=== PATIENT | male | born 1950 | race Caucasian/White ===

== ENCOUNTER 2020-10-13 08:13 | Outpatient (RCR) | payer MEDICARE, SELFPAY ==
[2020-10-13] MEDS: COVID-19 VACC, MRNA(PFIZER)/PF 30 MCG/0.3 ML SYRINGE IM (17:51)
[2020-11-03] MEDS: COVID-19 VACC, MRNA(PFIZER)/PF 30 MCG/0.3 ML SYRINGE IM (17:02)
== END 2021-01-17 23:59 ==
LOC: IMMUN 08:13
PROVIDERS: PCP Internal Medicine; Referring Provider Family Medicine; Visit Provider Family Medicine
DX: Z23 Encounter for immunization (principal)
CPT/HCPCS: 0001A; 0002A; 91300

== ENCOUNTER 2022-01-22 15:03 | Inpatient (IN) | payer MEDICARE, SELFPAY ==
[2022-01-22 15:05] VITALS: BP 137/92; PULSE 103; RESP 18; TEMP 36.1; O2SAT 96; BMI 29.5
--- NOTE | 2022-01-22 15:27 | EX.ED.GUMALE ---
HPI History of Present Illness Chief Complaint: Complaint Informant: patient Pain Onset: Yesterday Context: Sudden Onset Timing: Intermittent Current Severity: Moderate Maximum Severity: Moderate Worsened by: n/a Relieved by: n/a Narrative Narrative: Patient presenting with hematuria most times when he urinates since yesterday a.m. He had been urinating frequently, every 10 minutes or so, he gets the urge/pressure, then goes and then he feels better and does not feel like his bladder is full anymore until the next time he needs to go. He is only urinating very little when that happens. He is on Eliquis because of atrial fibrillation it was found about 6 weeks ago as an outpatient, asymptomatic. His last dose was taken last night, around 16 or 18 hours ago. States he has a history of enlarged prostate and in 1 part of 12 of his biopsies, there were cancer cells seen and has been observed. Saw urologist at [facility]. States he has not drank as much water today, but otherwise no other symptoms. No nausea, vomiting, fevers, dysuria, back pain. [facility] Medical History Atrial fibrillation Prostate cancer Home Medications apixaban [Eliquis] 5 mg PO BID 01/22/22 [History Last Taken 01/22/22] carvedilol 25 mg PO BID 01/22/22 [History Last Taken 01/22/22] doxazosin 8 mg PO DAILY 01/22/22 [History Last Taken 01/22/22] dulaglutide [Trulicity] 7.5 mg SUBCUT MO 01/22/22 [History Last Taken 01/22/22] glipizide 5 mg PO DAILY 01/22/22 [History Last Taken 01/22/22] levothyroxine [Synthroid] 87.5 mcg PO LAGUERRE 01/22/22 [History Last Taken 01/21/22] levothyroxine [Synthroid] 175 mcg PO MOTUWETHFRSA 01/22/22 [History Last Taken 01/22/22] losartan 50 mg PO BID 01/22/22 [History Last Taken 01/22/22] metformin 1,000 mg PO BID 01/22/22 [History Last Taken 01/22/22] Allergy/AdvReac Type Severity Reaction Status Date / Time Bxszubd-PZN-IuO Reductase AdvReac Pain in Verified 01/22/22 15:05 Inhibitor joints BLOOD PRESSURE MED Allergy Other Uncoded 01/22/22 15:05 Social History Smoking Status: Former smoker ROS ROS ED Constitutional Constitutional ED: Denies chills or fever(s) Eyes Eyes: Denies change in vision or diplopia ENT ENT ED: Denies rhinorrhea or sore throat Cardiovascular Cardiovascular: Denies chest pain or palpitations Respiratory/Chest Respiratory/Chest: Denies cough or dyspnea Gastrointestinal Gastrointestinal: Denies abdominal pain, diarrhea, nausea or vomiting Genitourinary Genitourinary ED: Reports as per HPI, hematuria, urinary frequency and urinary urgency; Denies dysuria Musculoskeletal Musculoskeletal: Denies back pain or neck pain Integumentary Denies abscess or rash Neurologic Neurologic: Denies headache(s), paresthesias or weakness Psychiatric Psychiatric: Denies anxiety or suicidal thoughts EXAM Physical Exam Const Vital Signs: 01/22/22 15:05 01/22/22 19:22 Temperature 96.9 F L Temperature Source Temporal Pulse Rate 103 H 98 Respiratory Rate 18 18 Blood Pressure 137/92 H Blood Pressure Mean 107 Pulse Ox 96 Oxygen Delivery Method Room Air Positive well nourished and well developed General Appearance ED: well developed and NAD HEENT Reports moist mucous membranes normocephalic and atraumatic Eyes PERRL and EOMs intact bilaterally Neck full ROM and supple Resp normal respiratory effort and clear to auscultation bilaterally Cardio regular rate, regular rhythm and no murmurs GI non-tender and non-distended Auscultation: normoactive bowel sounds Palpation: soft Back/Spine no CVA tenderness General Back: other FROM Extremity normal to inspection General Extremety ED: Negative for edema, pulses abnormal or tenderness General Extremity: Negative for edema or pulses abnormal Neuro oriented x3, CN's II-XII intact bilaterally and no sensory deficits noted Sensorium / Orientation: awake and alert Motor Exam: strength 5/5 throughout Skin no rashes or lesions noted and no wounds MDM MDM MDM Narrative Medical decision making narrative: Triple-lumen catheter was ordered, however nurse placed a regular Palafox in this patient and after performing Urojet to help placement. About 500 cc of urine came out, consistent with urinary retention, since this was post void and the patient only had very little come out. After small amount of irrigation patient still has hematuria and then the catheter was switched out to a triple-lumen, the patient was irrigated a small amount again. He has persistent hematuria. I think he can stop his anticoagulant temporarily, since it is for stroke prophylaxis due to A. fib.. However since he continues to bleed and had urinary retention, admission to the hospital is warranted for now. Discussed with urology Dr. Joseph as well, who will see the patient tomorrow in consultation Lab Data Attestation: I reviewed the patient's lab results. Labs: Laboratory Results - last 24 hr 01/22/22 01/22/22 01/22/22 15:40 15:40 15:50 WBC 8.8 RBC 4.83 Hgb 14.2 Hct 40.7 MCV 84.3 MCH 29.4 MCHC 34.9 RDW Std Deviation 39.1 RDW Coeff of Nenita 12.8 Plt Count 214 MPV 10.4 Immature Gran % (Auto) 0.800 Neut % (Auto) 81.8 H Lymph % (Auto) 9.5 L [place] % (Auto) 5.9 Eos % (Auto) 1.4 Baso % (Auto) 0.6 Absolute Neuts (auto) 7.2 Absolute Lymphs (auto) 0.84 Nucleated RBC % 0 Sodium 139 Potassium 4.3 Chloride 107 Carbon Dioxide 25.0 Anion Gap 7 BUN 18 Creatinine 1.29 Estim Creat Clear Calc 57.56 Est GFR (MDRD) Af Amer 71 Est GFR (MDRD) Non-Af 59 L BUN/Creatinine Ratio 14.0 Glucose 134 H Calcium 9.3 Urine Color Red Urine Clarity Cloudy Urine pH 6.5 Ur Specific [place] 1.015 Urine Protein 500 H Urine Glucose (UA) Normal Urine Ketones Negative Urine Occult Blood 250 H Urine Nitrite Negative Urine Bilirubin Negative Urine Urobilinogen Normal Ur Leukocyte Esterase Negative Urine RBC > 100 SEEN Urine WBC 0-5 SEEN Ur Squamous Epith Cells 0-5 SEEN Urine Bacteria 1+ Urine Mucus 0 SEEN Discharge Plan Dx/Rx/DC Orders Clinical Impression: Acute urinary retention, Hematuria, Atrial fibrillation Disposition Disposition: Acute Care Hospital [facility]
[2022-01-22 15:53] LABS: Absolute Lymphocyte Count 0.84 X10^3/uL (0.83-4.51); Absolute Neutrophil Count 7.2 X10^3/uL (2.0-7.7); Basophil# 0.05 X10^3/uL; Basophil% 0.6 % (0-1); Eosinophil# 0.12 X10^3/uL; Eosinophils% 1.4 % (0-5); Hematocrit 40.7 % (40-54); Hemoglobin 14.2 g/dL (13.0-16.5); Lymphocyte # 0.84 X10^3/ul (0.83-4.51); Lymphocyte % 9.5 % (19-41); Mean Corp Hgb Conc 34.9 g/dL (32-36); Mean Corpuscular Hgb 29.4 pg (27.0-32.0); Mean Corpuscular Volume 84.3 fL (80-94); Mean Platelet Vol. 10.4 fl (6.2-12.0); Monocyte# 0.52 X10^3/uL; Monocyte% 5.9 % (0-10); NRBC Flagged by Analyzer 0 % (0-5); Neutrophil # 7.24 X10^3/uL (2.7-7.7); Neutrophil % 81.8 % (47-70); Platelet Count 214 K/mm3 (150-450); RBC Distribution Width CV 12.8 % (11.6-14.6); RBC Distribution Width SD 39.1 fl (35.1-43.9); Red Blood Count 4.83 M/mm3 (4.6-6.2); White Blood Count 8.8 K/mm3 (4.4-11.0)
[2022-01-22 16:01] LABS: Mucous, Urine 0 SEEN /hpf (<or=2+)
[2022-01-22 16:05] LABS: Anion Gap 7 (5-15); BUN 18 mg/dL (7-18); Calcium,Total 9.3 mg/dL (8.5-10.1); Chloride 107 mmol/L (98-107); Creatinine, Serum 1.29 mg/dL (0.70-1.30); EST Glomerular Filtration Rate 59 mL/min (>60); Est Glom Filt Rate - Afr Amer 71 mL/min (>60); Estimated Creatinine Clearance 57.56 ml/min; Glucose 134 mg/dL (74-106); Potassium 4.3 mmol/L (3.5-5.1); Sodium Level 139 mmol/L (136-145)
[2022-01-22 16:22] LABS: Color, Urine Red (Yellow); Glucose, Dipstick Normal (Normal); Ketone-Dipstick Negative (Negative); Leukocyte Esterase-Dipstick Negative /ul (Negative); Nitrite-Dipstick Negative (Negative); Occult Blood-Urine 250 /ul (Negative); Protein-Dipstick 500 mg/dl (Negative); Specific Gravity, Urine 1.015 (1.002-1.030); Urine Bilirubin Dipstick Negative (Negative); Urine Clarity Cloudy (Clear); Urine Urobilinogen Normal (Normal); Urine pH 6.5 (5.0 - 8.0)
[2022-01-22] MEDS: Lidocaine Jelly 2% 20 ML Syringe (URO-JET) 1 APPLIC TOPICAL (16:43)
[2022-01-22 17:03] LABS: Bacteria 1+ /hpf (None Seen); Red Blood Cells-Urine > 100 SEEN /hpf (0-5); Squamous Epithelial Cells - UA 0-5 SEEN /hpf (0-5); White Blood Cells 0-5 SEEN /hpf (0-5)
[2022-01-22 19:22] VITALS: PULSE 98; RESP 18
--- NOTE | 2022-01-22 19:52 | HP.PCM.HOS_ITS ---
[facility] - General General Date of Admission: 01/22/22 HPI Narrative GRETCHEN RODAS, is a 71 M with a significant history of atrial fibrillation on Eliquis diabetes mellitus; hypothyroidism on levothyroxine; BPH with a prostate cancer and on doxazosin who presented to emergency department with a 2-day history of progressively worsening gross hematuria. Associated with his symptoms is urinary dribbling and urinary urgency. He denies any other symptoms At the emergency department patient was found to have gross hematuria. Palafox catheterization was remarkable for 500 cc of urine initially. Three-way catheter for urinary irrigation was started. Two to three years ago patient had prostate biopsy with a urologist at [facility] [place]. Reportedly reports the biopsy showed 1 out of 12 samples of cancer. Due to COVID pandemic patient decided that the prostate cancer be watched. [facility] Medical History Atrial fibrillation Prostate cancer Home Medications apixaban [Eliquis] 5 mg PO BID 01/22/22 [History Last Taken 01/22/22] carvedilol 25 mg PO BID 01/22/22 [History Last Taken 01/22/22] doxazosin 8 mg PO DAILY 01/22/22 [History Last Taken 01/22/22] dulaglutide [Trulicity] 7.5 mg SUBCUT MO 01/22/22 [History Last Taken 01/22/22] glipizide 5 mg PO DAILY 01/22/22 [History Last Taken 01/22/22] levothyroxine [Synthroid] 87.5 mcg PO LAGUERRE 01/22/22 [History Last Taken 01/21/22] levothyroxine [Synthroid] 175 mcg PO MOTUWETHFRSA 01/22/22 [History Last Taken 01/22/22] losartan 50 mg PO BID 01/22/22 [History Last Taken 01/22/22] metformin 1,000 mg PO BID 01/22/22 [History Last Taken 01/22/22] Allergy/AdvReac Type Severity Reaction Status Date / Time [id number]-LWW-GjZ Reductase AdvReac Pain in Verified 01/22/22 15:05 Inhibitor joints BLOOD PRESSURE MED Allergy Other Uncoded 01/22/22 15:05 Family History Other Arthritis Hypertension Surgical History Hx of cholecystectomy Social History Smoking Status: Former smoker ROS ROS Narrative Constitutional: Denies fever, chills, fatigue, anorexia and change in weight Eyes: Denies blurry vision, change in eye color, change in vision, discharge from eye(s), double vision, erythema, eye pain, loss of vision or other HEENT: Denies abnormal hearing, dysphagia, ear pain, epistaxis, headache(s), hearing loss, nasal congestion, nasal discharge, post nasal drip, sinus pressure, sore throat or other Cardiovascular: Denies chest pain or palpitations. Denies dyspnea on exertion, orthopnea and paroxysmal nocturnal dyspnea Respiratory/Chest: Denies cough, excessive phlegm production, shortness of breath with exertion and wheezing Gastrointestinal: Denies abdominal pain, coffee ground emesis, constipation, diarrhea, dyspepsia, hematemesis, hematochezia, loose stools, melena, nausea, vomiting or other Genitourinary: Gross hematuria. Urinary urgency. Musculoskeletal: Denies arthralgias, back pain, joint pain, joint stiffness, joint swelling, myalgias, neck pain or other Neurologic: Denies abnormal gait, abnormal speech, confusion, disequilibrium, dizziness, focal weakness, numbness, paresthesias, seizure-like activity, seizures, syncope, tingling, tremor(s) or other Psychiatric: Denies anxiety, depression, homicidal ideation, suicidal ideation or other Endocrinology: Denies change in body appearance, cold intolerance, excessive sweating, heat intolerance, polydipsia, polyuria or other Hematologic/Lymphatic: Denies anemia, easy bleeding, easy bruising, lymphadenopathy or other Integumentary: Denies rashes Allergic/Immunologic: Denies rhinitis, hives, eczema, or other Vital Signs Vital Signs Vital Signs: 01/22/22 15:05 01/22/22 19:22 Temperature 96.9 F L Temperature Source Temporal Pulse Rate 103 H 98 Respiratory Rate 18 18 Blood Pressure 137/92 H Blood Pressure Mean 107 Pulse Ox 96 Oxygen Delivery Method Room Air Weight Weight: 95.98 kg Body Mass Index (BMI) 29.5 Physical Exam Narrative Physical exam: General: Well-nourished, well-developed. Head: Normocephalic, atraumatic, no tenderness Eyes: Vision is grossly intact. EOMI ENT, no trauma, moist mucous membranes, no rhinorrhea Neck: Nontender, full range of motion. CVS: Regular rate and rhythm. S1-S2 present. No murmur, gallop or rub. Respiratory : clear to auscultation bilaterally, chest wall nontender, no wheezing Abdomen: Soft, nontender, nondistended, normal bowel sounds, no masses : Palafox catheter in place. Irrigation with bloody urine in Palafox bag. Back: Nontender, no CVA tenderness, no midline spinal tenderness, deformities, step-offs Extremities: Nontender full range of motion, no trauma Skin: Normal color, no trauma, abrasions Neuro: Alert, oriented, cranial nerves II through XII grossly intact. Psychiatry: Normal mood. Normal affect. Not depressed. Not anxious. Results Lab / Micro Data Result Diagrams: 01/22/22 15:40 01/22/22 15:40 Labs: Laboratory Results - last 24 hr 01/22/22 15:40: WBC 8.8, RBC 4.83, Hgb 14.2, Hct 40.7, MCV 84.3, MCH 29.4, MCHC 34.9, RDW Std Deviation 39.1, RDW Coeff of Nenita 12.8, Plt Count 214, MPV 10.4, Immature Gran % (Auto) 0.800, Neut % (Auto) 81.8 H, Lymph % (Auto) 9.5 L, [place] % (Auto) 5.9, Eos % (Auto) 1.4, Baso % (Auto) 0.6, Absolute Neuts (auto) 7.2, Absolute Lymphs (auto) 0.84, Nucleated RBC % 0 01/22/22 15:40: Sodium 139, Potassium 4.3, Chloride 107, Carbon Dioxide 25.0, Anion Gap 7, BUN 18, Creatinine 1.29, Estim Creat Clear Calc 57.56, Est GFR (MDRD) Af Amer 71, Est GFR (MDRD) Non-Af 59 L, BUN/Creatinine Ratio 14.0, Glucose 134 H, Calcium 9.3 01/22/22 15:50: Urine Color Red, Urine Clarity Cloudy, Urine pH 6.5, Ur Specific [place] 1.015, Urine Protein 500 H, Urine Glucose (UA) Normal, Urine Ketones Negative, Urine Occult Blood 250 H, Urine Nitrite Negative, Urine Bilirubin Negative, Urine Urobilinogen Normal, Ur Leukocyte Esterase Negative, Urine RBC > 100 SEEN, Urine WBC 0-5 SEEN, Ur Squamous Epith Cells 0-5 SEEN, Urine Bacteria 1+, Urine Mucus 0 SEEN Assessment & Plan Assessment/Plan (1) Acute urinary retention: (2) Hematuria: (3) Atrial fibrillation: PLAN: Urinary retention and gross hematuria Three-way urinary catheter was inserted at emergency department and bladder irrigation initiated; continued. Gentle normal saline hydration. Hemoglobin on presentation was 14.2. Will trend CBC. Emergency department doctor discussed the case with urology. Inpatient urology consult. We will keep patient n.p.o. after midnight. Hypertension Blood pressure is not within goal Carvedilol continued. Trend blood pressure and adjust blood pressure medications. Diabetes mellitus Patient with mild hyperglycemia on presentation Hold home oral hypoglycemic regimen. Also on home Trulicity. Monitor Accu-Cheks. Correction scale insulin ordered. Paroxysmal A. fib Stable Placed on admitting telemetry. Hold Eliquis for gross hematuria. DVT Prophylaxis: SCD ordered. Charges/Coding Visit Charges Inpatient E&M: 45403 Init Hosp L3
[2022-01-22 20:18] VITALS: BP 127/96; PULSE 75; RESP 18; TEMP 37.2; O2SAT 96
[2022-01-22 20:40] LABS: International Normalized Ratio 1.1; Prothrombin Time (Protime)PT. 14.3 SECONDS (11.7-14.9)
[2022-01-22 21:06] VITALS: BMI 28.2
[2022-01-22 21:07] VITALS: BP 186/92; PULSE 98; RESP 18; TEMP 37.2; O2SAT 98
[2022-01-22] MEDS: 0.9% Saline Lock 10 ML Syringe IV (21:39)
[2022-01-22] MEDS: 0.9% Normal Saline 1,000 ML 75 ML IV (21:39)
[2022-01-22 21:52] VITALS: PULSE 94
[2022-01-22 22:31] VITALS: BP 122/95; PULSE 96
[2022-01-22] MEDS: Oxymetazoline 0.05% 1 SPRAY SPRAY.BTL NASAL (22:39)
[2022-01-22] MEDS: Doxazosin 4 MG Tablet 8 MG PO (22:40)
[2022-01-22] MEDS: Losartan Potassium 50 MG Tablet PO (22:40)
[2022-01-22 22:50] LABS: Bedside Glucose 109 mg/dL (74-106)
[2022-01-23] VITALS (11 sets, daily range): BP systolic 119–157; BP diastolic 73–92; PULSE 77–98; RESP 16–18; TEMP 36.6–37; O2SAT 94–97
[2022-01-23 05:58] LABS: Absolute Lymphocyte Count 1.51 X10^3/uL (0.83-4.51); Absolute Neutrophil Count 4.9 X10^3/uL (2.0-7.7); Basophil# 0.04 X10^3/uL; Basophil% 0.5 % (0-1); Eosinophil# 0.28 X10^3/uL; Eosinophils% 3.7 % (0-5); Hematocrit 37.5 % (40-54); Hemoglobin 12.8 g/dL (13.0-16.5); Lymphocyte # 1.51 X10^3/ul (0.83-4.51); Lymphocyte % 19.8 % (19-41); Mean Corp Hgb Conc 34.1 g/dL (32-36); Mean Corpuscular Hgb 29.4 pg (27.0-32.0); Mean Platelet Vol. 10.4 fl (6.2-12.0); Monocyte# 0.84 X10^3/uL; NRBC Flagged by Analyzer 0 % (0-5); Neutrophil # 4.91 X10^3/uL (2.7-7.7); Neutrophil % 64.3 % (47-70); Platelet Count 187 K/mm3 (150-450); RBC Distribution Width SD 40.4 fl (35.1-43.9); Red Blood Count 4.36 M/mm3 (4.6-6.2); White Blood Count 7.6 K/mm3 (4.4-11.0)
[2022-01-23 06:27] LABS: Anion Gap 5 (5-15); BUN 18 mg/dL (7-18); BUN/Creat Ratio 16.2 RATIO (10-20); Calcium,Total 8.8 mg/dL (8.5-10.1); Chloride 108 mmol/L (98-107); Creatinine, Serum 1.11 mg/dL (0.70-1.30); EST Glomerular Filtration Rate 70 mL/min (>60); Est Glom Filt Rate - Afr Amer 84 mL/min (>60); Glucose 76 mg/dL (74-106); Potassium 3.7 mmol/L (3.5-5.1); Sodium Level 140 mmol/L (136-145)
--- NOTE | 2022-01-23 07:08 | PN.HOSP_ITS ---
Subjective Subjective Patient is a 71-year-old gentleman with past medical history segment of paroxysmal A. fib on systemic anticoagulation with apixaban admitted with hematuria Objective Data Objective Data Vital Signs: Vital Signs Temp Pulse Resp BP Pulse Ox 98.6 F 78 18 157/92 H 94 01/23/22 03:55 01/23/22 05:43 01/23/22 03:55 01/23/22 03:55 01/23/22 03:55 Oxygen Delivery Method Room Air Weight: 91.716 kg Body Mass Index (BMI) 28.2 Intake & Output: Intake and Output for Last 24 Hours 01/21/22 01/22/22 01/23/22 23:59 23:59 23:59 Intake Total 400 / 400 Output Total 3250 / 3250 600 / 600 Balance -2850 / -2850 -600 / -600 Lab / Micro Data Result Diagrams: 01/23/22 04:39 01/23/22 04:39 Labs: Laboratory Results - last 24 hr 01/22/22 15:40: WBC 8.8, RBC 4.83, Hgb 14.2, Hct 40.7, MCV 84.3, MCH 29.4, MCHC 34.9, RDW Std Deviation 39.1, RDW Coeff of Nenita 12.8, Plt Count 214, MPV 10.4, Immature Gran % (Auto) 0.800, Neut % (Auto) 81.8 H, Lymph % (Auto) 9.5 L, [place] % (Auto) 5.9, Eos % (Auto) 1.4, Baso % (Auto) 0.6, Absolute Neuts (auto) 7.2, Absolute Lymphs (auto) 0.84, Nucleated RBC % 0 01/22/22 15:40: Sodium 139, Potassium 4.3, Chloride 107, Carbon Dioxide 25.0, Anion Gap 7, BUN 18, Creatinine 1.29, Estim Creat Clear Calc 57.56, Est GFR (MDRD) Af Amer 71, Est GFR (MDRD) Non-Af 59 L, BUN/Creatinine Ratio 14.0, Glucose 134 H, Calcium 9.3 01/22/22 15:50: Urine Color Red, Urine Clarity Cloudy, Urine pH 6.5, Ur Specific [place] 1.015, Urine Protein 500 H, Urine Glucose (UA) Normal, Urine Ketones Negative, Urine Occult Blood 250 H, Urine Nitrite Negative, Urine Bilirubin Negative, Urine Urobilinogen Normal, Ur Leukocyte Esterase Negative, Urine RBC > 100 SEEN, Urine WBC 0-5 SEEN, Ur Squamous Epith Cells 0-5 SEEN, Urine Bacteria 1+, Urine Mucus 0 SEEN 01/22/22 20:21: PT 14.3, INR 1.1 01/22/22 22:34: POC Glucose 109 H 01/23/22 04:39: WBC 7.6, RBC 4.36 L, Hgb 12.8 L, Hct 37.5 L, MCV 86.0, MCH 29.4, MCHC 34.1, RDW Std Deviation 40.4, RDW Coeff of Nenita 13.0, Plt Count 187, MPV 10 .4, Immature Gran % (Auto) 0.700, Neut % (Auto) 64.3, Lymph % (Auto) 19.8, [place] % (Auto) 11.0 H, Eos % (Auto) 3.7, Baso % (Auto) 0.5, Absolute Neuts (auto) 4.9, Absolute Lymphs (auto) 1.51, Nucleated RBC % 0 01/23/22 04:39: Sodium 140, Potassium 3.7, Chloride 108 H, Carbon Dioxide 27.0, Anion Gap 5, BUN 18, Creatinine 1.11, Estim Creat Clear Calc 66.90, Est GFR (MDRD) Af Amer 84, Est GFR (MDRD) Non-Af 70, BUN/Creatinine Ratio 16.2, Glucose 76, Calcium 8.8 Physical Exam Narrative GENERAL: cooperative HEENT: Atraumatic; EYES; Anicteric, Normal Conjunctiva NECK; supple, normal thyroid, RESPIRATORY: Diminished to auscultation CARDIOVASCULAR: Regular S1 S2, GI: soft, normoactive bowel sounds, : No Renal angle tenderness; EXTREMITIES: No edema, no clubbing, MUSCULOSKELETAL: no muscle wasting NEURO: Awake; no lateralizing signs. SKIN: No Rash PSYCH; Flat affect. Assessment & Plan Assessment/Plan (1) Acute urinary retention: (2) Hematuria: (3) Atrial fibrillation: PLAN: Patient is a 71-year-old gentleman with past medical history segment of paroxysmal A. fib on systemic anticoagulation with apixaban admitted with hematuria 1. Acute urinary retention with hematuria ? Patient admitted to regular nursing floor started on a three-way urinary catheter with continuous bladder irrigation consult placed to urology. Patient is on apixaban this was held 2. Hypertension - Blood pressure controlled, home medications continued with dose adjustment as needed 3. Diabetes mellitus type II -patient's oral hypoglycemics held. Placed on long acting insulin, Accu-Cheks a.c. and at bedtime and covered with sliding scale insulin 4. Paroxysmal A. fib ? Rate controlled on apixaban for systemic anticoagulation this was held in view of his gross hematuria 5. DVT prophylaxis ? Patient was on apixaban prior to admission Charges/Coding Visit Charges Inpatient E&M: 63974 Subs Hosp L2
--- NOTE | 2022-01-23 07:38 | PCM.CONS.U ---
Assessment & Plan Assessment/Plan (1) Acute urinary retention: PLAN: mendez for now (2) Hematuria: PLAN: ct scan stone protocol HPI Consult Data Date of Consult: 01/23/22 HPI Narrative HPI Narrative: GRETCHEN RODAS, is a 71 M who Presents to the hospital with gross hematuria, he has a history of prostate cancer low-grade that was diagnosed and he has been on active surveillance. Presented with gross hematuria three-way catheter was initiated the urine is now clear we can slow down the irrigation and stop it if possible. I would order a CT scan stone protocol to evaluate the source of the bleeding and pending that findings he may have to have surgical intervention. [facility] Medical History (Updated 01/22/22 @ 21:16 by Héctor Barton) Atrial fibrillation Ex-smoker History of stress test Hypothyroid Prostate cancer Home Medications apixaban [Eliquis] 5 mg PO BID 01/22/22 [History Last Taken 01/22/22] carvedilol 25 mg PO BID 01/22/22 [History Last Taken 01/22/22] doxazosin 8 mg PO DAILY 01/22/22 [History Last Taken 01/22/22] dulaglutide [Trulicity] 7.5 mg SUBCUT MO 01/22/22 [History Last Taken 01/22/22] glipizide 5 mg PO DAILY 01/22/22 [History Last Taken 01/22/22] levothyroxine [Synthroid] 87.5 mcg PO LAGUERRE 01/22/22 [History Last Taken 01/21/22] levothyroxine [Synthroid] 175 mcg PO MOTUWETHFRSA 01/22/22 [History Last Taken 01/22/22] losartan 50 mg PO BID 01/22/22 [History Last Taken 01/22/22] metformin 1,000 mg PO BID 01/22/22 [History Last Taken 01/22/22] Allergy/AdvReac Type Severity Reaction Status Date / Time [id number] Reductase AdvReac Pain in Verified 01/22/22 15:05 Inhibitor joints BLOOD PRESSURE MED Allergy Other Uncoded 01/22/22 15:05 Family History Other Arthritis Hypertension Surgical History Hx of cholecystectomy Social History Smoking Status: Former smoker ROS Constitutional Constitutional: Denies chills, fever(s) or malaise Eyes Eyes: Denies blurry vision or change in vision ENT HEENT: Reports none Cardiovascular Cardiovascular: Denies chest pain or palpitations Respiratory/Chest Respiratory/Chest: Denies cough or shortness of breath with exertion Gastrointestinal Gastrointestinal: Denies abdominal pain, constipation or diarrhea Musculoskeletal Musculoskeletal: Denies back pain, joint stiffness or joint swelling Integumentary Integumentary: Denies dry skin, jaundice, lesions or rash Neurologic Neurologic: Denies confusion, syncope or weakness Psychiatric Psychiatric: Reports none; Denies anxiety or depression Endocrine Endocrinology: Denies excessive sweating, fatigue or flushing Hematologic/Lymphatic Hematologic/Lymphatic: Denies anemia, easy bleeding or easy bruising Physical Exam Const alert and oriented x3 General Appearance: cooperative HEENT normocephalic, head/scalp atraumatic, EAC's normal and TM's normal bilaterally Eyes PERRL and EOMs intact bilaterally Pupil: sluggish Neck no lymphadenopathy, supple and no JVD General: trachea midline Lymph Lymphatic: no lymphadenopathy noted, lymphedema and lymphadenopathy Resp normal respiratory effort, normal air movement and clear to auscultation bilaterally Cardio regular rate, regular rhythm and peripheral pulses 2+ throughout GI soft to palpation, non-tender and non-distended Extremity normal capillary refill and no clubbing, cyanosis or edema General Extremity: no tenderness to palpation of joints or extremities Skin no rashes or lesions noted General Skin Exam: turgor normal Lesions: no lesions Rashes: no rashes Neuro CN's II-XII intact bilaterally Speech: speech normal Motor Exam: strength 5/5 throughout; Negative for general weakness Psych thought process normal, cooperative and affect normal Appearance: appropriate Lab / Micro Data Result Diagrams: 01/23/22 04:39 01/23/22 04:39 Labs: Laboratory Results - last 24 hr 01/22/22 15:40: WBC 8.8, RBC 4.83, Hgb 14.2, Hct 40.7, MCV 84.3, MCH 29.4, MCHC 34.9, RDW Std Deviation 39.1, RDW Coeff of Nenita 12.8, Plt Count 214, MPV 10.4, Immature Gran % (Auto) 0.800, Neut % (Auto) 81.8 H, Lymph % (Auto) 9.5 L, [place] % (Auto) 5.9, Eos % (Auto) 1.4, Baso % (Auto) 0.6, Absolute Neuts (auto) 7.2, Absolute Lymphs (auto) 0.84, Nucleated RBC % 0 01/22/22 15:40: Sodium 139, Potassium 4.3, Chloride 107, Carbon Dioxide 25.0, Anion Gap 7, BUN 18, Creatinine 1.29, Estim Creat Clear Calc 57.56, Est GFR (MDRD) Af Amer 71, Est GFR (MDRD) Non-Af 59 L, BUN/Creatinine Ratio 14.0, Glucose 134 H, Calcium 9.3 01/22/22 15:50: Urine Color Red, Urine Clarity Cloudy, Urine pH 6.5, Ur Specific [place] 1.015, Urine Protein 500 H, Urine Glucose (UA) Normal, Urine Ketones Negative, Urine Occult Blood 250 H, Urine Nitrite Negative, Urine Bilirubin Negative, Urine Urobilinogen Normal, Ur Leukocyte Esterase Negative, Urine RBC > 100 SEEN, Urine WBC 0-5 SEEN, Ur Squamous Epith Cells 0-5 SEEN, Urine Bacteria 1+, Urine Mucus 0 SEEN 01/22/22 20:21: PT 14.3, INR 1.1 01/22/22 22:34: POC Glucose 109 H 01/23/22 04:39: WBC 7.6, RBC 4.36 L, Hgb 12.8 L, Hct 37.5 L, MCV 86.0, MCH 29.4, MCHC 34.1, RDW Std Deviation 40.4, RDW Coeff of Nenita 13.0, Plt Count 187, MPV 10.4, Immature Gran % (Auto) 0.700, Neut % (Auto) 64.3, Lymph % (Auto) 19.8, [place] % (Auto) 11.0 H, Eos % (Auto) 3.7, Baso % (Auto) 0.5, Absolute Neuts (auto) 4.9, Absolute Lymphs (auto) 1.51, Nucleated RBC % 0 01/23/22 04:39: Sodium 140, Potassium 3.7, Chloride 108 H, Carbon Dioxide 27.0, Anion Gap 5, BUN 18, Creatinine 1.11, Estim Creat Clear Calc 66.90, Est GFR (MDRD) Af Amer 84, Est GFR (MDRD) Non-Af 70, BUN/Creatinine Ratio 16.2, Glucose 76, Calcium 8.8
--- NOTE | 2022-01-23 07:41 | CT_ITS ---
STUDY: CT ABDOMEN AND PELVIS WITH AND WITHOUT CONTRAST REASON FOR EXAM: Male, 71 years old. Gross hematuria. History of prostate cancer and urinary retention. RADIATION DOSAGE (If Supplied By Facility): CTDIvol = ( 22.99 ) mGy, DLP = ( 4009.23 ) mGycm TECHNIQUE: Transaxial images were obtained from the dome of the diaphragm to the symphysis pubis without oral contrast. 100ML ISOVUE 300 was administered. Sagittal and coronal images were reconstructed. Individualized dose optimization techniques were used for this CT. COMPARISON: None. FINDINGS: The visualized lung bases are unremarkable. Coronary artery calcification. There is decreased attenuation of the liver consistent with steatosis. The patient is status post cholecystectomy. Normal spleen. Normal pancreas. Normal bilateral adrenal glands. There is a 1.9 cm cyst in the mid and lateral aspect of the right kidney. 1.3 cm cyst in the posterior upper pole of the right kidney. There is a 6.2 mm nonobstructive calculus in the midpole calyx of the left kidney. There is a small hiatal hernia. There is a 1.6 cm diverticulum in the second portion of the duodenum. Normal small intestine. Normal colon. The appendix is visualized and appears normal. There is diffuse atherosclerotic calcification of the abdominal aorta, without a demonstrated aneurysm. Normal inferior vena cava. Normal retroperitoneum. A EHRCULES catheter is seen within the urinary bladder. The urinary bladder is empty. There is a irregularity of the visualized bladder wall. There is enlargement of the prostate gland. The prostate measures 5.1 cm x 5.9 cm. This causes indentation of the bladder base. Normal abdominal wall. There are degenerative changes of the visualized lumbar spine. Mild dextroscoliosis. CT/CT Abd/Pelvis W/WO Contrast IMPRESSION: Diffuse enlargement of the prostate with indentation of the bladder base. Irregular thickening of the urinary bladder wall. Findings the position of the liver. Small bilateral renal cysts. 6.2 mm nonobstructive calculus in the midpole calyx of the left kidney. Electronically Signed: Moe Padron MD at 9:20 EDT ,
[2022-01-23] MEDS: Carvedilol 25 MG Tablet PO ×2 (07:46→16:25)
[2022-01-23] MEDS: Acetaminophen 325 MG Tablet 650 MG PO (07:50)
--- NOTE | 2022-01-23 10:10 | CASEMGMT ---
RN KALA Face to Face with patient for initial transition planning/care coordination assessment. RN CM introduced self and role at [facility]. Patient lying in bed, alert and oriented. Patient willing to participate in assessment and is able to answer all questions appropriately. Care providers, pharmacy, and demographics verified. Patient wishes to discharge home, denies need for home health at this time. Patient states he has no further needs or concerns at this time. CM to follow for discharge planning needs that may arise. 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 Patient states he is independent at home. Transportation: self, hospital van DME/HHC: Patient denies previous HHC or SNF. No DME in the home Disposition Plan: Patient to discharge home with family support and follow-up plans in place. Hedy JEFFERSON, RN, CM
[2022-01-23] MEDS: 0.9% Normal Saline 1,000 ML 75 ML IV ×2 (10:23→21:43)
[2022-01-23] MEDS: Finasteride 5 MG Tablet PO (10:24)
[2022-01-23] MEDS: Oxymetazoline 0.05% 1 SPRAY SPRAY.BTL NASAL ×2 (10:24→21:36)
[2022-01-23] MEDS: Tamsulosin HCl 0.4 MG Capsule PO ×2 (10:24→21:36)
[2022-01-23] MEDS: Losartan Potassium 50 MG Tablet PO ×2 (10:24→21:37)
[2022-01-23 11:45] LABS: Bedside Glucose 184 mg/dL (74-106)
[2022-01-23 16:45] LABS: Bedside Glucose 141 mg/dL (74-106)
[2022-01-23] MEDS: Doxazosin 4 MG Tablet 8 MG PO (21:37)
[2022-01-23 22:10] LABS: Bedside Glucose 135 mg/dL (74-106)
[2022-01-24] VITALS (7 sets, daily range): BP systolic 131–151; BP diastolic 74–82; PULSE 67–78; RESP 16–18; TEMP 36.6–36.8; O2SAT 95–99
[2022-01-24] MEDS: Levothyroxine 175 MCG Tablet PO (05:45)
--- NOTE | 2022-01-24 06:00 | EKG12_ITS ---
Test Reason : AM EKG Blood Pressure : / mmHG Vent. Rate : 075 BPM Atrial Rate : 075 BPM P-R Int : 176 ms QRS Dur : 084 ms QT Int : 374 ms P-R-T Axes : 042 -20 029 degrees QTc Int : 417 ms Normal sinus rhythm Normal ECG Confirmed by SYLVIA FRAGOSO, GRETCHEN ([id number]), editor newspaper CARROL EDWARDS ([id number]) on 01/25/2022 10:16:48 AM Referred By: OLINDA Confirmed By:GRETCHEN WARD MD
[2022-01-24 06:24] LABS: Thyroid Stim Hormone (TSH) 1.17 uIU/mL (0.358-3.74)
[2022-01-24 06:35] LABS: Bedside Glucose 122 mg/dL (74-106)
--- NOTE | 2022-01-24 07:13 | PN.HOSP_ITS ---
Subjective Subjective Patient seen hematuria cleared. Results of patient's CT ordered by urology reviewed. Objective Data Objective Data Vital Signs: Vital Signs Temp Pulse Resp BP Pulse Ox 97.9 F 73 16 131/74 H 96 01/24/22 02:04 01/24/22 04:03 01/24/22 02:04 01/24/22 02:04 01/24/22 02:04 Oxygen Delivery Method Room Air Weight: 91.716 kg Body Mass Index (BMI) 28.2 Intake & Output: Intake and Output for Last 24 Hours 01/22/22 01/23/22 01/24/22 23:59 23:59 23:59 Intake Total 400 / 400 2405 / 3205 800 / 800 Output Total 3250 / 3250 6850 / 6850 Balance -2850 / -2850 -4445 / -3645 800 / 800 Lab / Micro Data Result Diagrams: 01/23/22 04:39 01/23/22 04:39 Labs: Laboratory Results - last 24 hr 01/23/22 11:31: POC Glucose 184 H 01/23/22 16:24: POC Glucose 141 H 01/23/22 21:35: POC Glucose 135 H 01/24/22 03:44: TSH 1.17 01/24/22 05:38: POC Glucose 122 H Radiography Diagnostic Testing: Radiology Impression Abdomen/Pelvis CT 01/23/22 07:41 IMPRESSION: Diffuse enlargement of the prostate with indentation of the bladder base. Irregular thickening of the urinary bladder wall. Findings the position of the liver. Small bilateral renal cysts. 6.2 mm nonobstructive calculus in the midpole calyx of the left kidney. Electronically Signed: Moe Padron MD at 9:20 EDT , Physical Exam Narrative GENERAL: cooperative HEENT: Atraumatic; EYES; Anicteric, Normal Conjunctiva NECK; supple, normal thyroid, RESPIRATORY: Diminished to auscultation CARDIOVASCULAR: Regular S1 S2, GI: soft, normoactive bowel sounds, : No Renal angle tenderness; EXTREMITIES: No edema, no clubbing, MUSCULOSKELETAL: no muscle wasting NEURO: Awake; no lateralizing signs. SKIN: No Rash PSYCH; Flat affect. Assessment & Plan Assessment/Plan (1) Acute urinary retention: (2) Hematuria: (3) Atrial fibrillation: PLAN: Plan Patient is a 71-year-old gentleman with past medical history segment of paro xysmal A. fib on systemic anticoagulation with apixaban admitted with hematuria 1. Acute urinary retention with hematuria ? Patient admitted to regular nursing floor started on a three-way urinary c atheter with continuous bladder irrigation consult placed to urology. Patient is on apixaban this was held ? 01/24/[address] of the abdomen obtained demonstrated Diffuse enlargement of the prostate with indentation of the bladder base. Irregular thickening of the urinary bladder wall. Findings the position of the liver. Small bilateral renal cysts. 6.2 mm nonobstructive calculus in the midpole calyx of the left kidney -Further recommendation as per urology 2. Hypertension - Blood pressure controlled, home medications continued with dose adjustment as needed 3. Diabetes mellitus type II -patient's oral hypoglycemics held. Placed on long acting insulin, Accu-Cheks a.c. and at bedtime and covered with sliding scale insulin 4. Paroxysmal A. fib ? Rate controlled on apixaban for systemic anticoagulation this was held in view of his gross hematuria 5. DVT prophylaxis ? Patient was on apixaban prior to admission Charges/Coding Visit Charges Inpatient E&M: 27730 Subs Hosp L2
[2022-01-24 07:57] LABS: Hemoglobin A1c 5.8 % (3.8-5.6)
[2022-01-24] MEDS: Carvedilol 25 MG Tablet PO (08:35)
[2022-01-24] MEDS: Losartan Potassium 50 MG Tablet PO (08:35)
[2022-01-24] MEDS: Tamsulosin HCl 0.4 MG Capsule PO (08:35)
[2022-01-24] MEDS: Finasteride 5 MG Tablet PO (08:35)
[2022-01-24] MEDS: 0.9% Normal Saline 1,000 ML 75 ML IV (10:53)
[2022-01-24 11:46] LABS: Bedside Glucose 129 mg/dL (74-106)
[2022-01-24] MEDS: Oxymetazoline 0.05% 1 SPRAY SPRAY.BTL NASAL (12:41)
--- NOTE | 2022-01-24 16:48 | DS.PCM_ITS ---
Providers Date of Admission: 01/22/22 Primary Care Physician: Dr. Duane Kee MD Consultations 01/22/22 21:05 Consult: Urology Routine Consulting Provider: Clement Joseph Reason for Consult: Gross hematuria EMERGENT Consult: No MD Notified: Yes Date Notified: 01/22/22 Time Notified: 19:51 Method of Notification: ED Physician Initiated Reason For Visit: GROSS HEMATURIA, URINARY RETENTION Diagnosis Discharge Diagnosis (1) Acute urinary retention: Status: Acute Code(s): R33.8 - Other retention of urine (2) Hematuria: Status: Acute Code(s): R31.9 - Hematuria, unspecified (3) Atrial fibrillation: Status: Acute Code(s): I48.91 - Unspecified atrial fibrillation Medications at Discharge Home Medications carvedilol 25 mg tablet 25 mg PO BID heart 01/22/22 doxazosin 8 mg tablet 8 mg PO DAILY heart 01/22/22 dulaglutide 0.75 mg/0.5 mL subcutaneous pen injector (Trulicity) 0.75 mg subcut MO dm 01/22/22 glipizide 5 mg tablet, extended release 24 hr 5 mg PO DAILY dm 01/22/22 levothyroxine 175 mcg tablet (Synthroid) 87.5 mcg PO LAGUERRE thyroid 01/22/22 levothyroxine 175 mcg tablet (Synthroid) 175 mcg PO MOTUWETHFRSA thyroid 01/22/22 losartan 50 mg tablet 50 mg PO BID bp 01/22/22 metformin 500 mg tablet 1,000 mg PO BID dm 01/22/22 finasteride 5 mg tablet 5 mg PO DAILY #60 tabs 01/24/22 tamsulosin 0.4 mg capsule 0.4 mg PO DAILY #60 caps 01/24/22 Hospital Course Summary of Care Provided Minutes Spent on Discharge: 35 Hospital Course: Patient is a 71-year-old gentleman with past medical history segment of paroxysmal A. fib on systemic anticoagulation with apixaban admitted with hematuria 1.? Acute urinary retention with hematuria ? Patient admitted to regular nursing floor started on a three-way urinary catheter with continuous bladder irrigation consult placed to urology.? Patient is on apixaban this was held ? 01/24/[address] of the abdomen obtained demonstrated Diffuse enlargement of the prostate with indentation of the bladder base. Irregular thickening of the urinary bladder wall. Findings the position of the liver. Small bilateral renal cysts. 6.2 mm nonobstructive calculus in the midpole calyx of the left kidney -Patient was discharged on finasteride and tamsulosin with plans for patient to follow-up with urology as outpatient 2.? Hypertension - Blood pressure controlled, home medications continued with dose adjustment as needed 3.? Diabetes mellitus type II -patient's oral hypoglycemics held. Placed on long acting insulin, Accu-Cheks a.c. and at bedtime and covered with sliding scale insulin 4.? Paroxysmal A. fib ? Rate controlled on apixaban for systemic anticoagulation this was held in view of his gross hematuria ? 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 DVT prophylaxis ? Patient was on apixaban prior to admission Physical Exam Narrative GENERAL: cooperative HEENT: Atraumatic; EYES; Anicteric, Normal Conjunctiva NECK; supple, normal thyroid, RESPIRATORY: Diminished to auscultation CARDIOVASCULAR: Regular S1 S2, GI: soft, normoactive bowel sounds, : No Renal angle tenderness; EXTREMITIES: No edema, no clubbing, MUSCULOSKELETAL: no muscle wasting NEURO: Awake; no lateralizing signs. SKIN: No Rash PSYCH; Flat affect. Weight / BMI Weight Weight: 91.716 kg Body Mass Index (BMI) 28.2 ABG / Lab / Microbiology Data Result Diagrams: 01/23/22 04:39 01/23/22 04:39 Laboratory: Laboratory Results - last 24 hr 01/23/22 21:35: POC Glucose 135 H 01/24/22 03:44: TSH 1.17 01/24/22 03:44: Hemoglobin A1c 5.8 H 01/24/22 05:38: POC Glucose 122 H 01/24/22 11:35: POC Glucose 129 H D/C Instructions Discharge Diet: No restrictions Discharge Activity: Return to Normal Activity Call your doctor if you observe: Fever of 101 or Higher, Shortness of breath, Fainting spells and Chest pain Meaningful Use Info Meaningful Use Diagnoses (Choose all that apply): None applicable Discharge Plan Admission Admit Date/Time: 01/22/22 19:47 Attending Provider: Hugh Holbrook Primary Care Provider: Duane Kee Consulting Providers: Clement Joseph ; Han Rojas Discharge Orders/Prescriptions Prescriptions: New tamsulosin 0.4 mg Capsule 0.4 mg PO DAILY Qty: 60 0RF finasteride 5 mg Tablet 5 mg PO DAILY Qty: 60 0RF Continued losartan 50 mg tablet 50 mg PO BID metformin 500 mg tablet 1,000 mg PO BID levothyroxine [Synthroid] 175 mcg tablet 175 mcg PO MOTUWETHFRSA levothyroxine [Synthroid] 175 mcg tablet 87.5 mcg PO LAGUERRE carvedilol 25 mg tablet 25 mg PO BID glipizide 5 mg tablet extended release 24hr 5 mg PO DAILY doxazosin 8 mg tablet 8 mg PO DAILY Trulicity 0.75 mg/0.5 mL pen injector 0.75 mg SUBCUT MO Discontinued Eliquis 5 mg tablet 5 mg PO BID Referrals / Follow Up: Clement Joseph MD [STAFF PHYSICIAN] - In 1 Week Duane Kee MD [Primary Care Provider] - Disposition Disposition (needs filled in before D/C Order can be placed): Home, Self Care Charges/Coding Visit Charges Inpatient E&M: 28188 Disch Hosp
--- NOTE | 2022-01-24 17:04 | PCM.CONS.U ---
HPI Consult Data Date of Consult: 01/24/22 HPI Narrative HPI Narrative: GRETCHEN RODAS, is a 71 M who presents Palafox catheter removed patient has been able to urinate urine is clear he can go home with prostate medications Flomax and Proscar and needs to follow-up with urology can follow-up in my clinic in about 2 or 3 weeks he can call my office for an appointment call me with questions [facility] Medical History (Updated 01/22/22 @ 21:16 by Héctor Barton) Atrial fibrillation Ex-smoker History of stress test Hypothyroid Prostate cancer Home Medications carvedilol 25 mg tablet 25 mg PO BID heart 01/22/22 [History Last Taken 01/22/22] doxazosin 8 mg tablet 8 mg PO DAILY heart 01/22/22 [History Last Taken 01/22/22] dulaglutide 0.75 mg/0.5 mL subcutaneous pen injector (Trulicity) 0.75 mg subcut MO dm 01/22/22 [History Last Taken 01/22/22] glipizide 5 mg tablet, extended release 24 hr 5 mg PO DAILY dm 01/22/22 [History Last Taken 01/22/22] levothyroxine 175 mcg tablet (Synthroid) 87.5 mcg PO LAGUERRE thyroid 01/22/22 [History Last Taken 01/21/22] levothyroxine 175 mcg tablet (Synthroid) 175 mcg PO MOTUWETHFRSA thyroid 01/22/22 [History Last Taken 01/22/22] losartan 50 mg tablet 50 mg PO BID bp 01/22/22 [History Last Taken 01/22/22] metformin 500 mg tablet 1,000 mg PO BID dm 01/22/22 [History Last Taken 01/22/22] finasteride 5 mg tablet 5 mg PO DAILY #60 tabs 01/24/22 [Rx Last Taken Unknown] tamsulosin 0.4 mg capsule 0.4 mg PO DAILY #60 caps 01/24/22 [Rx Last Taken Unknown] Allergy/AdvReac Type Severity Reaction Status Date / Time [id number] Reductase AdvReac Pain in Verified 01/22/22 15:05 Inhibitor joints BLOOD PRESSURE MED Allergy Other Uncoded 01/22/22 15:05 Family History Other Arthritis Hypertension Surgical History Hx of cholecystectomy Social History Smoking Status: Former smoker Lab / Micro Data Result Diagrams: 01/23/22 04:39 01/23/22 04:39 Labs: Laboratory Results - last 24 hr 01/23/22 21:35: POC Glucose 135 H 01/24/22 03:44: TSH 1.17 01/24/22 03:44: Hemoglobin A1c 5.8 H 01/24/22 05:38: POC Glucose 122 H 01/24/22 11:35: POC Glucose 129 H
== END 2022-01-24 17:31 | disposition home or self-care (01) | DRG 726 ==
LOC: ED 19:09 → MS3 20:09
PROVIDERS: Anesthesiology; Admitting Provider Hospitalist; Emergency Provider Emergency Medicine; PCP Internal Medicine; Visit Provider Internal Medicine
DX: N40.1 Benign prostatic hyperplasia with lower urinary tract symptoms (principal); C61 Malignant neoplasm of prostate; E11.65 Type 2 diabetes mellitus with hyperglycemia; I48.0 Paroxysmal atrial fibrillation; I10 Essential (primary) hypertension; E03.9 Hypothyroidism, unspecified; R33.8 Other retention of urine; R39.15 Urgency of urination; R31.0 Gross hematuria; Z79.01 Long term (current) use of anticoagulants; Z79.890 Hormone replacement therapy; Z87.891 Personal history of nicotine dependence; Z79.84 Long term (current) use of oral hypoglycemic drugs
CPT/HCPCS: 36415; 74178; 80048; 81001; 82962; 83036; 84443; 85025; 85610; 93005; 99284; J7030; Q9967; A4216

== ENCOUNTER → 2022-02-05 | Outpatient (CLI) | payer MEDICARE, SELFPAY | END | disposition home or self-care (01) | LOC: LAB 13:43 | PROVIDERS: PCP Internal Medicine; Referring Provider Urology; Visit Provider Urology | DX: N40.0 Benign prostatic hyperplasia without lower urinary tract symptoms (principal) | CPT/HCPCS: 36415; 84153 ==

== ENCOUNTER → 2022-03-02 | Outpatient (CLI) | payer MEDICARE, SELFPAY ==
--- NOTE | 2022-03-02 13:45 | MRI_ITS ---
STUDY: MR PELVIS WITH AND WITHOUT CONTRAST (PROSTATE) REASON FOR EXAM: Male, 71 years old. Elevated PSA TECHNIQUE: Standardized multiparametric prostate MRI with T1, T2, DWI/ADC sequences were obtained in 3 orthogonal planes, and dynamic contrast enhancement sequences. ml of 20ml Dotarem contrast material was administered intravenously for the contrast portion of the examination. COMPARISON: None. FINDINGS: The prostate volume measures 69.1 mm3. The contours of the prostate gland are lobulated. There is mass effect on the bladder base. The transition zone is heterogenous. PI-RADS DWI score 3 - Focal mildly hypointense on ADC and isointense/mildly hyperintense on high b-value DWI. PI-RADS T2W score 2 - A mostly encapsulated nodule OR a homogeneous circumscribed nodule without encapsulation (atypical nodule) or a homogeneous mildly hypointense area between nodules.. Contrast enhancement no early or contemporaneous enhancement; or diffuse multifocal enhancement NOT corresponding to a focal finding on T2W and/or DWI or focal ehancement responding to a lesion demonstrating features of BPH onT2WI (including features of extruded BPH in the PZ). The peripheral zone is homogenous. PI-RADS DWI score 1 - No abnormality (normal) on ADC or high b-value DWI. PI-RADS T2W score 2 - Linear, wedge-shaped, or diffuse mild hypointensity, usually with indistinct margin. Contrast enhancement no early or contemporaneous enhancement; or diffuse multifocal enhancement NOT corresponding to a focal finding on T2W and/or DWI or focal enhancement responding to a lesion demonstrating features of BPH onT2WI (including features of extruded BPH in the PZ). The seminal vesicles demonstrate normal margins and T2 signal pattern. No mass lesion or invasion depicted. The rectoprostatic angles are normal. Urinary bladder is normal without wall thickening. The vascular structures of the are normal. The visualized hollow viscus structures are normal. No bone marrow edema or mass lesion depicted. MRI/Pelvis W/WO Contrast IMPRESSION: 1. PIRADS v2.1 2019 -- 2 - Low (clinically significant cancer is unlikely). Electronically Signed: Ignacio Mcfarland MD ([place]) at 19:18 EDT Reading Location ID and State: [facility] / [place] , Service support ,
== END | disposition home or self-care (01) ==
LOC: MRI 13:10
PROVIDERS: PCP Internal Medicine; Referring Provider Urology; Visit Provider Urology
DX: R97.20 Elevated prostate specific antigen [PSA] (principal)
CPT/HCPCS: 72197; A9575